=== PATIENT | male | born 1945 | race Caucasian/White ===

== ENCOUNTER 2022-06-24 05:29 | Emergency (ER) | payer MEDICARE ==
[~2022-06-24] VITALS: Ht 190.5 cm; Wt 75.7 kg
[2022-06-24] MEDS ORDERED: ONDANSETRON 4 MG/2 ML VIAL ONE ×2 (05:55→06:50)
[2022-06-24] MEDS ORDERED: HYDROMORPHONE 1 MG/1 ML DISP.SYRIN ONE (05:55)
[2022-06-24] MEDS ORDERED: ONDANSETRON 4 MG/2 ML VIAL IV ONE ×2 (06:00→07:00)
[2022-06-24] MEDS ORDERED: HYDROMORPHONE 1 MG/1 ML DISP.SYRIN IV ONE (06:00)
--- NOTE | 2022-06-24 06:00 | NUR ---
X-ray tech at bedside.
[2022-06-24] MEDS ORDERED: ETOMIDATE 20 MG/10 ML VIAL ONE (06:08)
[2022-06-24] MEDS ORDERED: IV NS 1000 ML 1,000 ML IV ONE (06:10)
--- NOTE | 2022-06-24 06:12 | NUR ---
Dr Olivares verbally ordered 1 vial of etomidate
--- NOTE | 2022-06-24 06:13 | NUR ---
1000 ml NS started via IV RT AC.
--- NOTE | 2022-06-24 06:20 | NUR ---
Etomidate 10mg given by Mary PEDRAZA during conscious sedation
[2022-06-24] MEDS ORDERED: ETOMIDATE 20 MG/10 ML VIAL IV ONE (06:30)
--- NOTE | 2022-06-24 06:30 | NUR ---
PT RESTING QUIETLY WITH VSS AND PAIN 0, AFTER CONSCIOUS SEDATION AND L ANKLE REDUCTION.
[2022-06-24] MEDS ORDERED: OXYC-128 PO (06:36)
[2022-06-24] MEDS ORDERED: ONDA4TAB5 PO (06:36)
--- NOTE | 2022-06-24 07:03 | NUR ---
Report given to MILO Ardon.
[2022-06-24] MEDS ORDERED: PROCHLORPERAZINE EDISYLATE 10 MG/2 ML VIAL ONE (08:14)
[2022-06-24] MEDS ORDERED: diphenhydrAMINE 50 MG/1 ML VIAL ONE (08:14)
[2022-06-24] MEDS ORDERED: diphenhydrAMINE 50 MG/1 ML VIAL IV ONE (08:15)
[2022-06-24] MEDS ORDERED: PROCHLORPERAZINE EDISYLATE 10 MG/2 ML VIAL IV ONE (08:15)
--- NOTE | 2022-06-24 09:03 | NUR ---
Removed IV intact, site okay, bandaged. Crutch training offered, pt refused, stating he is experienced. Gave pt RX and d/c instructions, verbalized understanding.
[2022-06-24 09:07] VITALS: BP 113/53
== END 2022-06-24 09:11 | disposition home or self-care (01) ==
LOC: ER 05:37
DX: S82.852A Displaced trimalleolar fracture of left lower leg, initial encounter for closed fracture (principal); S93.305A Unspecified dislocation of left foot, initial encounter; Z88.0 Allergy status to penicillin; V29.99XA Rider (driver) (passenger) of other motorcycle injured in unspecified traffic accident, initial encounter; Y93.89 Activity, other specified; Y92.89 Other specified places as the place of occurrence of the external cause; Y99.8 Other external cause status
CPT/HCPCS: 73610; A4663; J0780; J1170; J1200; J2405; J3490; J7040